=== PATIENT | male | born 1980 | race Caucasian/White ===

== ENCOUNTER 2016-11-26 19:55 | Emergency (ER) | payer OTHER ==
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
[~2016-11-26 19:55] MED LIST: BACITRACIN30 GM TOP; CIPRO PO; FLEXERIL10 MG PO; LORTAB 7.5-5001 TAB PO; MOBIC PO; PEN-VEE K PO; PHENERGAN PO; PYRIDIUM PO; SILVADENE TOP; ULTRAM PO; VICODIN PO; VISCOUS LIDOCAINE TOP
== END 2016-11-26 21:53 | disposition home or self-care (01) ==
LOC: SED 19:55
DX: S16.1XXA Strain of muscle, fascia and tendon at neck level, initial encounter (principal); S29.012A Strain of muscle and tendon of back wall of thorax, initial encounter; S39.012A Strain of muscle, fascia and tendon of lower back, initial encounter; V89.2XXA Person injured in unspecified motor-vehicle accident, traffic, initial encounter; Y92.410 Unspecified street and highway as the place of occurrence of the external cause
CPT/HCPCS: 72072; 72100; 72125; 96372; 99284; J1885; J2360